=== PATIENT | female | born 1995 | race Two or more races ===

== ENCOUNTER 2021-06-25 13:46 | Emergency (ER) | payer OTHER ==
[~2021-06-25] VITALS: Ht 157.5 cm; Wt 84.5 kg
[2021-06-25 13:49] VITALS: BP 105/67
[2021-06-25] MEDS ORDERED: FAMOTIDINE 20 MG TABLET PO ONE (14:00)
[2021-06-25] MEDS ORDERED: DIPHENHYDRAMINE 25 MG CAPSULE PO ONE (14:00)
[2021-06-25] MEDS ORDERED: DIPHENHYDRAMINE 25 MG CAPSULE ONE (14:00)
[2021-06-25] MEDS ORDERED: FAMOTIDINE 20 MG TABLET ONE (14:00)
--- NOTE | 2021-06-25 14:03 | NUR ---
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 POC IS OBS
--- NOTE | 2021-06-25 14:42 | NUR ---
PT REPORTS IMPROVED S/S WITH RX. POC IS DC
== END 2021-06-25 14:51 | disposition home or self-care (01) ==
LOC: EDBD 13:46 → ED 14:16
DX: L50.9 Urticaria, unspecified (principal)
CPT/HCPCS: 99284; J7512; Q0163